=== PATIENT | male | born 1990 | race Caucasian/White ===

== ENCOUNTER 2020-09-22 10:05 | Emergency (ER) | payer MEDICAID, SELFPAY ==
[2020-09-22 10:05] VITALS: BP 135/86; PULSE 90; RESP 18; TEMP 36.4; O2SAT 99; BMI 27.5
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
--- NOTE | 2020-09-22 10:30 | ED.DEP ---
ED Disposition - Plan for ED Patient: Instructions: ED Laceration Facial Sutr Tape Referrals: Joseph Krishnan MD [STAFF PHYSICIAN] - Care Physician,No Primary [Primary Care Provider] - 7 Days for suture removal
[2020-09-22] MEDS: Lidocaine 1% (20 ml mdv) 20 ML Vial 4 ML INFILT (10:48)
== END 2020-09-22 10:48 | disposition home or self-care (01) ==
PROVIDERS: Emergency Provider Emergency Medicine
DX: S01.111A Laceration without foreign body of right eyelid and periocular area, initial encounter (principal); S09.90XA Unspecified injury of head, initial encounter; V19.9XXA Pedal cyclist (driver) (passenger) injured in unspecified traffic accident, initial encounter; Y93.55 Activity, bike riding; Y92.9 Unspecified place or not applicable; Z72.0 Tobacco use
CPT/HCPCS: 12011; 99283